=== PATIENT | male | born 2000 | race Caucasian/White ===

== ENCOUNTER 2024-10-23 18:47 | Emergency (ER) | payer OTHER, SELFPAY ==
[2024-10-23 18:48] VITALS: BP 137/74; PULSE 116; RESP 18; TEMP 36.5; O2SAT 99; BMI 23.2
--- NOTE | 2024-10-23 18:58 | EDS_ITS ---
HPI <MOLLY Carr - Last Filed: 10/23/24 19:35> History of Present Illness Chief Complaint: Head Injury Narrative Narrative: 24-year-old male presents for Worker's Comp. injury. 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 No LOC. He states he did not think much of it but he could not sleep well last night and woke up with more pain in the area and he hit his head and feeling dizzy. No headache, nausea, vomiting, or visual changes. No blood thinners. [facility] <MOLLY Carr - Last Filed: 10/23/24 19:35> [facility] Medical History (Updated 10/23/24 @ 19:31 by MOLLY Carr) Epilepsy Home Medications ?Medication ?Instructions ?Recorded ?Last Taken ?Type NK 10/23/24 Unknown History Allergy/AdvReac Type Severity Reaction Status Date / Time No Known Allergies Allergy Verified 10/23/24 18:51 Family History no significant family his Social History Smoking Status: Never smoker ROS <MOLLY Carr - Last Filed: 10/23/24 19:35> ROS ED ROS Narrative Eyes: Negative for visual change. GI: Negative for nausea, vomiting. Neuro: Negative for headache, motor/sensory dysfunction. Skin: Negative for rash, abscess, or wound. Musc: Negative for joint pain, swelling, trauma. Heme: Negative for easy bruising, bleeding, lymphadenopathy. EXAM <MOLLY Carr - Last Filed: 10/23/24 19:35> Physical Exam Narrative Exam Narrative: CONST: Patient sitting in no acute distress. EYES: Normal inspection. PERRL, EOMI. HEAD: Head normocephalic atraumatic, no raccoon eyes or morse sign, no hemotympanum, no nasal septal hematoma, no CSF otorrhea or rhinorrhea. NECK: Normal inspection. RESP: No respiratory distress, CTAB. CVS: Regular rate and rhythm, no murmur, no gallop. SKIN: Color normal, no rash, warm, dry, intact. EXTREMITIES: Normal appearance, no pedal edema. NEURO: Alert and answering questions appropriately. 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 PSYCH: Normal affect. Const Vital Signs: 10/23/24 18:48 10/23/24 19:06 10/23/24 19:31 Temperature 97.7 F L 97.7 F L Temperature Source Temporal Pulse Rate 116 H 84 Respiratory Rate 18 16 Respiratory Effort Normal Respiratory Depth Normal Respiratory Pattern Normal Blood Pressure 137/74 H 134/82 H Blood Pressure Mean 95 99 Pulse Ox 99 97 Oxygen Delivery Method Room Air Room Air <Dr. Buddy Gee MD - Last Filed: 10/23/24 19:33> Physical Exam Const Vital Signs: 10/23/24 18:48 10/23/24 19:06 10/23/24 19:31 Temperature 97.7 F L 97.7 F L Temperature Source Temporal Pulse Rate 116 H 84 Respiratory Rate 18 16 Respiratory Effort Normal Respiratory Depth Normal Respiratory Pattern Normal Blood Pressure 137/74 H 134/82 H Blood Pressure Mean 95 99 Pulse Ox 99 97 Oxygen Delivery Method Room Air Room Air MDM <MOLLY Carr - Last Filed: 10/23/24 19:35> [facility] Narrative Medical decision making narrative: 24-year-old male who had a closed head injury yesterday at work without loss of consciousness. He was asymptomatic yesterday. He woke up with dizziness and a right sided headache. No vomiting. He is awake alert no distress. GCS 15. He has no external signs of head injury or basilar skull fracture and has a nonfocal neurological exam. According to [place] CT head rule no imaging is indicated. I recommended [id number] pain relievers and discussed head injury return precautions. At this time he can return to work with no restrictions. <Dr. Buddy Gee MD - Last Filed: 10/23/24 19:33> [facility] Treatment and Re-Evaluation Comments:: I have personally performed a face to face assessment of the patient and have reviewed the JUAN Note. I performed a substantive portion of the visit including all aspects of the following. My laughlin findings include: History is hit right high forehead on an undercarriage at work as he was getting out from underneath of it when he was working on it. He did not get dazed or have a headache vision changes nausea vomiting or any other symptoms throughout the entire day yesterday after this. He woke up in a little later after waking up he states he developed a headache on the right side and he feels a little di zzy like lightheaded. No other symptoms. Exam is normocephalic atraumatic no tenderness where he hit his head. No Morse sign, no raccoon eyes, no CSF otorhinorrhea, no hemotympanum. GCS 15 normal neurologic exam no neck tenderness or limited range of motion of his head. Medical Decison Making patient meets [place] head trauma rules for this minor injury, which may or may not even be causing his symptoms. No CT indicated, patient stable for discharge and outpatient follow-up with [facility]. Other additions or changes: [None] Discharge Plan Triage Chief Complaint: Head Injury ED Midlevel Provider: Aniya Denny ED Provider: Buddy Gee Dx/Rx/DC Orders Clinical Impression: Closed head injury without loss of consciousness Instructions: ED Head Injury (Adult) Prescriptions: No Action NK Primary Care Provider: Care Physician,No Primary Referrals: [facility] [Provider Group] Care Physician,No Primary [Primary Care Provider] - Activity Restrictions/Additional Instructions: Think you have a minor concussion. Rest, avoid any things that worsens your headache or symptoms such as phones or screens. Take Tylenol Motrin as needed for pain. Follow-up with occupational health if needed. Print Language: Irish Disposition Disposition: Home, Self Care Discharge Date/Time: 10/23/24 19:34
[2024-10-23 19:31] VITALS: BP 134/82; PULSE 84; RESP 16; TEMP 36.5; O2SAT 97
--- NOTE | 2024-10-23 19:33 | ED.RN ---
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 Pt unknown if needed to get drug screening at this time and educated on what this means if pt ends up needing it for his employer.
== END 2024-10-23 19:34 | disposition home or self-care (01) ==
LOC: ED 19:29
PROVIDERS: Emergency Provider Emergency Medicine; Visit Provider Emergency Medicine
DX: S09.90XA Unspecified injury of head, initial encounter (principal); W22.09XA Striking against other stationary object, initial encounter; Y99.0 Civilian activity done for income or pay
CPT/HCPCS: 99282